=== PATIENT | female | born 1970 | race Caucasian/White ===

== ENCOUNTER 2016-10-13 13:14 | Emergency (ER) | payer BC ==
[~2016-10-13] VITALS: Ht 165.1 cm; Wt 66.0 kg
[2016-10-13 14:07] LABS: HEMOGLOBIN 12.1 g/dL (11.7-16.4)
[2016-10-13 14:19] LABS: ASPARTATE AMINO TRANSFERASE 11 U/L (15-37); BLOOD UREA NITROGEN 16 mg/dL (7-18)
[2016-10-13 16:34] LABS: PATH.CAST-FLAG NOT PRESENT; SPERM-FLAG NOT PRESENT; SRC-FLAG NOT PRESENT; XTAL-FLAG NOT PRESENT; YLC-FLAG NOT PRESENT
[2016-10-13] MEDS ORDERED: LORazepam 1MG TABLET ONE (16:56)
[2016-10-13] MEDS ORDERED: ONDANSETRON 2MG/ML, 2ML ONE (16:57)
[2016-10-13] MEDS ORDERED: LORazepam 1MG TABLET PO ONE (17:00)
[2016-10-13] MEDS ORDERED: SODIUM CHLORIDE 0.9% 1,000ML IVBOLUS ONE (17:00)
[2016-10-13] MEDS ORDERED: ONDANSETRON 2MG/ML, 2ML IVPush ONE (17:00)
[2016-10-13] MEDS ORDERED: SODIUM CHLORIDE FLUSH 10ML SYR IVF ONE (17:00)
[2016-10-13] MEDS ORDERED: ZOLP-413 PO (17:11)
[2016-10-13 18:59] VITALS: BP 101/49
== END 2016-10-13 19:03 | disposition home or self-care (01) ==
LOC: ED 17:21
DX: K21.9 Gastro-esophageal reflux disease without esophagitis (principal); F41.1 Generalized anxiety disorder; F32.9 Major depressive disorder, single episode, unspecified; E03.9 Hypothyroidism, unspecified; M54.30 Sciatica, unspecified side
CPT/HCPCS: 36415; 74022; 80053; 81001; 83690; 85025; 96361; 96374; 99285; J2405; J7030

== ENCOUNTER 2018-04-25 08:33 | Emergency (ER) | payer BC, OTHER ==
[~2018-04-25] VITALS: Ht 167.6 cm; Wt 83.3 kg
[~2018-04-25 08:33] MED LIST: ZOLP-413 PO
[2018-04-25 09:03] VITALS: BP 102/64
== END 2018-04-25 10:39 | disposition home or self-care (01) ==
LOC: ED 10:30
DX: M19.042 Primary osteoarthritis, left hand (principal); M19.041 Primary osteoarthritis, right hand; F41.1 Generalized anxiety disorder; E03.9 Hypothyroidism, unspecified; K21.9 Gastro-esophageal reflux disease without esophagitis; F32.9 Major depressive disorder, single episode, unspecified
CPT/HCPCS: 72050; 99284